=== PATIENT | female | born 1990 | race Asian ===

== ENCOUNTER 2017-07-09 18:55 | Emergency (ER) | payer SELFPAY ==
[2017-07-09] MEDS ORDERED: NS 1,000 ML IV ONE (18:56)
--- NOTE | 2017-07-09 18:56 | EDPHY ---
HPI/HX/ROS/PE/MDM Narrative: CHIEF COMPLAINT: Stoke alert HPI: The patient is a 26 y/o female arriving via EMS with a stroke alert after she was unable to talk, onset at 18:40, 15 minutes ago. She was at a climbing gym standing on the floor, when she collapsed into another person. After she collapsed, she was unable to talk or acknowledge the people around her. No trauma by history. While en route to the ED her BGL was 70. Unable to obtain further history. REVIEW OF SYSTEMS: Unable to obtain as patient cannot speak. PMH: Denies SOCIAL HISTORY: Boyfriend at bedside, lives in [place], non-smoker PHYSICAL EXAM: General: Patient is alert, in no acute distress. ENT: Eyes are normal to inspection. ENT inspection normal. Neck: Normal inspection. Full range of motion. Respiratory: No respiratory distress. Breath sounds normal bilaterally. Cardiovascular: Regular rate and rhythm. Strong peripheral pulses. Normal cap refill. Abdomen: The abdomen is nontender to palpation. There are no peritoneal signs. There are normal bowel sounds. Back: Normal to inspection. No tenderness to palpation. Skin: Normal color. No rash. Warm and dry. Extremities: Normal appearance. Full range of motion. Neuro: Moving all extremities easily. Can say yes and no. Unable to write. No gross deficits but patient not very cooperative with initial exam. ED Course: 1848: Stoke alert called by EMS 1855: I met EMS upon arrival and examined the patient. Head CT and labs ordered. 1904: Patient is moving around in CT, 2mg IV Ativan administered. 1914: Spoke with radiologist, non-contrast head CT is negative. Neck and brain angiogram still pending. 1924: Spoke with radiologist, there is an acute cut off of the M1/M2 artery. 1928: EKG was ordered and interpreted by myself. Please see [employer] system for official reading. 0: Reassessed patient, her boyfriend is now at bedside. He reports that 30 minutes prior to her collapsing, she felt nauseous. A similar episode of nausea occurred yesterday, but improved shortly after. 1934: Consulted with the Dr. Dahl, neurologist from [facility], regarding this patient. The patient is a candidate for TPA. 0: Reassessed patient and discussed plan for TPA. The neurologist was consulting with the patient via the robot. Patient will be transferred to [facility] via ambulance as [facility] cannot fly due to weather. Patient and her boyfriend are comfortable with this plan. 1953: Consulted with [facility] regarding this patient. Dr. Dahl will be admitting this patient. Patient is currently receiving TPA. EMTALA signed. Critical care time spent by me, Dr. Castorena, exclusively with this patient was 65 minutes, exclusive of PA time and exclusive of procedures. The organ system at risk was the brain and I gave IV TPA, preformed multiple imaging studies of the head, neck, and brain, and emergently transferred the patient to a neurosurgeon to prevent worsening of the patients condition. MDM: This patient presents with signs and symptoms of acute ischemic stroke, confirmed by CTA. The neurologist and I agree that she is a good tPA candidate. Dr. Garcia reviewed risks and benefits of tPA via tele-robot, and patient agrees with plan for treatment and transfer to [facility]. - Data Points Imaging Results: Imaging Impressions Head CT 07/09/17 18:56 Impression: 1. Hyperdense left M1/M2 correlates with an abrupt vessel cut off in the left M1. This is consistent with acute thromboembolic vessel occlusion. 2. No evidence of mass effect or midline shift. 3. Left carotid bulb web arising from the posterior wall of the proximal carotid bulb that results in approximately 50% focal stenosis (but not according to NASCET criteria for the reasons discussed above). Dr. Proctor discussed these findings by telephone with Rolan Castorena MD on at 1912 and 1925 hours. The scan could not be dictated sooner due to technical difficulties with the order. Technical support was called and this was resolved. Head CTA 07/09/17 18:57 Impression: 1. Hyperdense left M1/M2 correlates with an abrupt vessel cut off in the left M1. This is consistent with acute thromboembolic vessel occlusion. 2. No evidence of mass effect or midline shift. 3. Left carotid bulb web arising from the posterior wall of the proximal carotid bulb that results in approximately 50% focal stenosis (but not according to NASCET criteria for the reasons discussed above). Dr. Proctor discussed these findings by telephone with Rolan Castorena MD on at 1912 and 1925 hours. The scan could not be dictated sooner due to technical difficulties with the order. Technical support was called and this was resolved. Neck CTA 07/09/17 18:58 Impression: 1. Hyperdense left M1/M2 correlates with an abrupt vessel cut off in the left M1. This is consistent with acute thromboembolic vessel occlusion. 2. No evidence of mass effect or midline shift. 3. Left carotid bulb web arising from the posterior wall of the proximal carotid bulb that results in approximately 50% focal stenosis (but not according to NASCET criteria for the reasons discussed above). Dr. Proctor discussed these findings by telephone with Rolan Castorena MD on at 1912 and 1925 hours. The scan could not be dictated sooner due to technical difficulties with the order. Technical support was called and this was resolved. Imaging: Discussed imaging studies w/ wiring mechanic Radiologist Laboratory Results: Laboratory Results 07/09/17 19:17 07/09/17 19:17 07/09/17 07/09/17 19:17 19:17 WBC 7.97 10^3/uL 10^3/uL (3.80-9.50) RBC 4.66 10^6/uL 10^6/uL (4.18-5.33) Hgb 14.2 g/dL g/dL (12.6-16.3) Hct 42.2 % % (38.0-47.0) MCV 90.6 fL fL (81.5-99.8) MCH 30.5 pg pg (27.9-34.1) MCHC 33.6 g/dL g/dL (32.4-36.7) RDW 13.0 % % (11.5-15.2) Plt Count 333 10^3/uL 10^3/uL (150-400) MPV 8.9 fL fL (8.7-11.7) Neut % (Auto) 64.1 % % (39.3-74.2) Lymph % (Auto) 26.7 % % (15.0-45.0) [place] % (Auto) 7.7 % % (4.5-13.0) Eos % (Auto) 0.6 % % (0.6-7.6) Baso % (Auto) 0.6 % % (0.3-1.7) Nucleat RBC Rel Count 0.0 % % (0.0-0.2) Absolute Neuts (auto) 5.11 10^3/uL 10^3/uL (1.70-6.50) Absolute Lymphs (auto) 2.13 10^3/uL 10^3/uL (1.00-3.00) Absolute Monos (auto) 0.61 10^3/uL 10^3/uL (0.30-0.80) Absolute Eos (auto) 0.05 10^3/uL 10^3/uL (0.03-0.40) Absolute Basos (auto) 0.05 10^3/uL 10^3/uL (0.02-0.10) Absolute Nucleated RBC 0.00 10^3/uL 10^3/uL (0-0.01) Immature Gran % 0.3 % % (0.0-1.1) Immature Gran # 0.02 10^3/uL 10^3/uL (0.00-0.10) Sodium 142 mEq/L mEq/L (135-145) Potassium 3.3 mEq/L L mEq/L (3.5-5.2) Chloride 103 mEq/L mEq/L (97-110) Carbon Dioxide 23 mEq/l mEq/l (22-31) Anion Gap 16 mEq/L mEq/L (8-16) BUN 12 mg/dL mg/dL (7-23) Creatinine 0.7 mg/dL mg/dL (0.6-1.0) Estimated GFR > 60 Glucose 96 mg/dL mg/dL (70-100) Calcium 9.4 mg/dL mg/dL (8.5-10.4) Troponin I < 0.012 ng/mL ng/mL (0.000-0.034) Medications Given: Discontinued Medications Alteplase, Recombinant (Activase) 4.92169 mg 0.09 mg/kg (4.19993 mg) IV ONCE ONE PRN Reason: Protocol Stop: 07/09/17 19:47 Last Admin: 07/09/17 19:46 Dose: 4.17907 mg Alteplase, Recombinant (Activase) 44.69188 mg 0.81 mg/kg (44.89717 mg) IV ONCE ONE PRN Reason: Protocol Stop: 07/09/17 19:47 Last Admin: 07/09/17 19:47 Dose: 44.70379 mg Sodium Chloride (Ns) 1,000 mls @ 500 mls/hr IV EDNOW ONE PRN Reason: Protocol Stop: 07/09/17 20:55 Last Admin: 07/09/17 19:15 Dose: 1,000 mls Lorazepam (Ativan Injection) 2 mg IVP EDNOW ONE Stop: 07/09/17 19:22 Last Admin: 07/09/17 19:07 Dose: 2 mg General Initial Vital Signs: Initial Vital Signs Heart Rate 81 07/09/17 19:00 Respiratory Rate 20 07/09/17 19:00 Blood Pressure 144/77 H 07/09/17 19:00 O2 Sat (%) 100 07/09/17 19:00 O2 Delivery Mode Room Air O2 (L/minute) 2 Allergies/Adverse Reactions: No Known Allergies Allergy (Unverified 07/09/17 19:20) Home Medications: Medication Instructions Recorded NK [No Known Home Meds] 07/09/17 Departure - Departure Disposition: Acute [facility] Clinical Impression: Acute ischemic stroke Condition: Serious Referrals: Patient,NotPresent [Primary Care Provider] - As per Instructions Report Scribed for: Rolan Castorena Report Scribed by: Fatmata Lowe Date of Report: 07/09/17 Time of Report: 18:58 Physician Review and Approval Statement: Portions of this note were transcribed by an ED scribe. I personally performed the history, physical exam, and medical decision making; and confirm the accuracy of the information in the transcribed note.
[2017-07-09] MEDS ORDERED: LORazepam 2 MG/ML INJ ONE (19:06)
[2017-07-09] MEDS ORDERED: ALTEPLASE 100 MG/100 ML VIAL IV ONE ×2 (19:07→19:46)
[2017-07-09] MEDS ORDERED: LORazepam 2 MG/ML INJ IVP ONE (19:21)
[2017-07-09 19:22] LABS: PLATELET COUNT 333 10^3/uL (150-400)
--- NOTE | 2017-07-09 19:30 | CPEKG ---
Heart Rate: 79 RR Interval: 759 P-R Interval: 136 QRSD Interval: 78 QT Interval: 380 QTC Interval: 436 P [place]: 121 QRS [place]: 130 T Wave [place]: 146 EKG Severity - DEFECTIVE ECG - EKG Impression: LIKELY SINUS RHYHTM WITH PAC EKG Impression: RIGHT AND LEFT ARM LEADS REVERSED, PLEASE REPEAT ECG Electronically Signed By: Jimmy Amezquita 10-Jul-2017 13:00:33
[2017-07-09] MEDS ORDERED: ALTEPLASE 1 MG/ML SYR IV ONE (19:46)
[2017-07-09] MEDS ORDERED: NS 50 ML IV ONE (19:46)
[2017-07-09 20:12] VITALS: TEMP 98.1
[2017-07-09 20:16] VITALS: BP 132/85; PULSE 82; RESP 16; O2SAT 97
== END 2017-07-09 20:14 | disposition short-term general hospital (02) ==
LOC: EDBD 18:55
DX: I63.9 Cerebral infarction, unspecified (principal); E86.9 Volume depletion, unspecified
CPT/HCPCS: 82947-QW; 96374; J2060; J2997